=== PATIENT | female | born 1980 | race Caucasian/White ===

== ENCOUNTER 2019-09-17 15:45 | Outpatient (CLI) | payer SELFPAY ==
--- NOTE | 2019-09-17 16:45 | MR_ITS ---
WS: [id number] MRI LEFT SHOULDER NONCONTRAST TECHNIQUE: Sagittal T2, coronal T1, T2 and proton density imaging. Axial gradient PDE imaging. CLINICAL INFORMATION: left shoulder injury COMPARISON: None. FINDINGS: Left AC joint is normal in appearance. Mild downsloping of the acromion. Preservation of the subacrom ial space. Normal supraspinatus. Normal infraspinatus. Teres minor is normal in appearance. Normal poe bscapularis. No evidence of rotator cuff tear. Normal biceps tendon in the bicipital groove. Normal biceps labral anchor. Glenoid labrum is normal i n appearance. Normal overlying soft tissues. MR/MR shoulder LT wo con* [id number] IMPRESSION: 1. Normal AC joint with mild downsloping acromion. 2. Rotator cuff is normal in appearance. No rotator cuff tears. 3. Normal biceps tendon in the bicipital groove. 4. Normal visualized glenoid labrum.
== END 2019-09-17 15:46 | disposition home or self-care (01) ==
LOC: RADSHAW 15:51
PROVIDERS: Visit Provider Emergency Medicine
DX: S49.92XA Unspecified injury of left shoulder and upper arm, initial encounter (principal); X58.XXXA Exposure to other specified factors, initial encounter
CPT/HCPCS: 73221